=== PATIENT | male | born 1960 | race Caucasian/White ===

== ENCOUNTER 2018-08-14 01:54 | Outpatient (CLI) | payer BC, SELFPAY | END 2018-08-14 02:14 | PROVIDERS: PCP Family Medicine; Visit Provider Family Medicine | DX: E11.8 Type 2 diabetes mellitus with unspecified complications (principal) | CPT/HCPCS: 36415; 83036 ==

== ENCOUNTER 2018-11-12 08:18 | Outpatient (CLI) | payer BC, SELFPAY ==
[2018-11-12 11:17] LABS: Hemoglobin A1C 7.6 % (4.5-6.2)
== END 2018-11-12 08:38 ==
PROVIDERS: PCP Family Medicine; Visit Provider Family Medicine
DX: E11.65 Type 2 diabetes mellitus with hyperglycemia (principal)
CPT/HCPCS: 36415; 83036

== ENCOUNTER 2019-02-25 08:09 | Outpatient (CLI) | payer BC, SELFPAY ==
[2019-02-25 12:46] LABS: Hemoglobin A1C 7.1 % (4.5-6.2)
== END 2019-02-25 08:29 ==
PROVIDERS: PCP Family Medicine; Visit Provider Family Medicine
DX: E11.9 Type 2 diabetes mellitus without complications (principal)
CPT/HCPCS: 36415; 83036

== ENCOUNTER 2019-05-31 08:31 | Outpatient (CLI) | payer BC, SELFPAY ==
[2019-05-31 09:56] LABS: Hemoglobin A1C 7.5 % (4.5-6.2)
== END 2019-05-31 08:51 ==
PROVIDERS: PCP Family Medicine; Visit Provider Family Medicine
DX: E11.9 Type 2 diabetes mellitus without complications (principal)
CPT/HCPCS: 36415; 83036

== ENCOUNTER 2023-08-01 07:49 | Observation (INO) | payer BC, SELFPAY ==
[2023-08-01] VITALS (49 sets, daily range): BP systolic 100–145; BP diastolic 49–77; PULSE 64–96; RESP 12–35; TEMP 34.4–36.9; O2SAT 93–100
--- NOTE | 2023-08-01 07:45 | RT.EKG_ITS ---
APPROVED REPORT Exam: Resting ECG Reason for Exam: Dizzy Patient Location: E HR:78 bpm ECG Measurements Heart Rate 78 AXIS AK 103 P -88 QRSd 113 QRS -27 QT 420 T -2 QTc 481 Conclusion Sinus or ectopic atrial rhythm...P axis (-45,135) LAD borderline short AK interval. No previous for comparison. No STEMI
[2023-08-01] MEDS: Metoclopramide 10 MG/2 ML VIAL 5 MG IVP (08:23)
[2023-08-01] MEDS: diphenhydrAMINE 50 MG/ML VIAL 25 MG IVP (08:23)
[2023-08-01] MEDS: Lactated Ringers 1,000 ML 1000 ML IV ×2 (08:23→10:04)
[2023-08-01 08:25] LABS: Abs Immature Grans 0.04 10^3/uL (0.0-0.06); Absolute Basophil Count 0.07 10^3/uL (0.0-0.2); Absolute Eosinophil Count 0.17 10^3/uL (0.0-0.7); Absolute Monocyte Count 0.62 10^3/uL (0.1-0.8); Absolute Neutrophil Count 7.04 10^3/uL (1.2-6.7); Basophils % 0.7; Eosinophils % 1.6; Immature Grans % 0.4; Lymphocytes % 24.7; MCH 29.9 pg (27.0-33.0); MCHC 34.1 % (32.0-36.0); MCV 88 fL (80-95); MPV 10.2 fL (8.0-11.0); Monocytes % 5.9; Neutrophils % 66.7; Platelet Count 221 10^3/uL (130-400); RBC 5.02 10^6/uL (4.36-5.78); RDW 12.9 % (11.8-14.1); RDW-SD 41.3 fL; WBC 10.54 10^3/uL (4.4-10.8)
[2023-08-01 08:54] LABS: ALT 25 U/L (16-63); AST 16 U/L (15-37); Albumin 3.4 g/dL (3.4-5.0); Alkaline Phosphatase 96 U/L (46-116); Anion Gap 10.3 mmol/L (3-11); BUN 25 mg/dL (7-18); Bilirubin, Total 0.8 mg/dL (0.2-1.0); CO2 24.7 mmol/L (21.0-32.0); CREATININE 1.3 mg/dL (0.70-1.30); Chloride 100 mmol/L (98-107); Estimated GFR 61.73 (mL/min/1.73m2); Glucose 245 mg/dL (74-106); Magnesium 1.6 mg/dL (1.8-2.4); Sodium 135 mmol/L (136-145); Troponin I < 50 ng/L (<or=60)
[2023-08-01] MEDS: Meclizine 25 MG TAB PO ×2 (08:57→13:17)
--- NOTE | 2023-08-01 09:20 | W.ED.GENAD ---
Discharge Plan Disposition Patient Disposition: Admit to [facility] Condition: Good Discharge Details Admit Date/Time: 08/01/23 13:08 Admit Provider: Geraldo Ahuja Attending Provider: Geraldo Ahuja Primary Care Provider: Adrianna,Local ED Provider: Kerry Del Cid Discharge Data Discharge Date/Time-TO BE ENTERED AT DEPARTURE: 08/01/23 14:21 Medical Decision Making 63-year-old male presenting with dizziness followed by nausea and vomiting Mild right beating nystagmus, benign neurological exam, mild gait ataxia, labs do not show evidence of significant acute abnormality aside from mild hypomagnesemia, will supplement Initial troponin negative, EKG with mildly prolonged QTc, no significant evidence of acute ischemia, denies chest pain or shortness of GCS 15, cranial nerves II through XII intact, negative [id number], negative heel baer, negative pronator drift Able to follow basic commands, speaking in complete sentences, keeping eyes closed secondary to dizziness Received Benadryl, meclizine, 2 L of fluid, still remains dizzy, will order MRI to exclude posterior stroke Evidence of dehydration on labs, BUN of 25 Patient had MRI of the brain that does not show acute abnormality per radiology interpretation my review Patient has received numerous BPPV meds, meclizine, and Valium, fluids, developed nausea, vomiting, and having dizziness, unable to tolerate Rachel maneuver, will need admission to the hospital, with Dr. Ahuja, will admit to speak with you since recommends patientis time most likely is tendinitis discussed plan discussed along with HPI General Date/Time Provider Initiated Documentation: 08/01/23 08:09. HPI Narrative: 63-year-old male with history of SVT, diabetes, hypertension, hyperlipidemia presents with cute onset of dizziness this morning when he sat on the bed followed by nausea and vomiting. Denies any known sick contacts, history of tinnitus, denies any currently. States he feels the room is spinning around him. Denies strength or sensation or vision change. Denies any recent neck manipulations or injuries. Denies any chest pain or shortness of breath. He states he vomits vomited numerous times. Thinks his spinning is causing vomiting per patient. Related Data Home Medications Medication Instructions Recorded Confirmed pen needle, diabetic 31 gauge x ##360 06/18/18 08/13/1911/22 metformin 1,000 mg tablet 1,000 mg PO BID #180 tab-caps 08/02/19 08/01/23 simvastatin 40 mg tablet 40 mg PO HS #90 tabs 08/02/19 08/01/23 hydrochlorothiazide 25 mg tablet 25 mg PO DAILY hypertension #90 11/12/19 08/01/23 tabs losartan 100 mg tablet 100 mg PO DAILY #90 tabs 11/12/19 08/01/23 flash glucose scanning reader #1 ea 03/16/20 (FreeStyle Lisa 14 Day [place]) flash glucose sensor (FreeStyle #6 ea 03/25/20 Lisa 14 Day Sensor kit) gabapentin 100 mg capsule 100 mg PO BID 08/01/23 08/01/23 insulin glargine 100 unit/mL (3 26 unit subcut DAILY 08/01/23 08/01/23 mL) subcutaneous pen (Lantus Solostar U-100 Insulin) insulin lispro 100 unit/mL 8 unit subcut PRN PRN 08/01/23 08/01/23 subcutaneous pen meclizine 25 mg tablet 25 mg PO TID PRN dizziness #30 tabs 08/02/23 Previous Rx's Medication Instructions Recorded pen needle, diabetic 31 gauge x ##360 06/18/1811/22 metformin 1,000 mg tablet 1,000 mg PO BID #180 tab-caps 08/02/19 simvastatin 40 mg tablet 40 mg PO HS #90 tabs 08/02/19 hydrochlorothiazide 25 mg tablet 25 mg PO DAILY hypertension #90 11/12/19 tabs losartan 100 mg tablet 100 mg PO DAILY #90 tabs 11/12/19 flash glucose scanning reader #1 ea 03/16/20 (FreeStyle Lisa 14 Day [place]) flash glucose sensor (FreeStyle #6 ea 03/25/20 Lisa 14 Day Sensor kit) meclizine 25 mg tablet 25 mg PO TID PRN dizziness #30 tabs 08/02/23 Allergies Allergy/AdvReac Type Severity Reaction Status Date / Time No Known Allergies Allergy Unverified 08/01/23 07:59 General Stated Complaint: Nausea/Vomit/Diar ROSALINA: 3 [facility] Medical History (Updated 08/03/23 @ 00:13 by DAVI BUTLER) Conductive hearing loss, external ear (05/25/17) Wears hearing aids DM (diabetes mellitus) Essential hypertension (09/06/13) HTN (hypertension) Hyperlipidemia (10/19/04) 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) Smoker quit Smoker Supraventricular tachycardia 04/06/12 Supraventricular tachycardia (04/06/12) Syncope 02/18/13 Syncope (02/18/13) Tinnitus, bilateral (05/25/17) Tubular adenoma (05/11/18) tubulovillous Type II diabetes mellitus with complication, uncontrolled Surgical History (Updated 08/01/23 @ 16:54 by Anthony Henry MD) Arthroplasty of knee left Colonoscopy - MAC (05/11/18) H/O arthroscopy of left knee History of arthroscopy of knee Reconstruction reconstruction of left hand after near amputation S/P reconstruction procedure left hand after near amputation Status post reconstruction procedure Family History (Updated 08/13/19 @ 11:14 by John Chamorro) Mother No problems noted. Father , age 58 Diabetes Sister , age 49 Cancer Brother No problems noted. Brother No problems noted. Maternal Grandfather No problems noted. Paternal Grandfather Stroke Maternal Grandmother No problems noted. Paternal Grandmother No problems noted. Son No problems noted. Daughter No problems noted. Daughter No problems noted. Social History (Updated 08/13/19 @ 11:12 by John Chamorro) Smoking/Tobacco Use Status: Current-Occasional Tobacco: How many years used: 40 Quit status: considering quitting Second Hand Exposure: Yes Smoking risk assessment performed?: Yes Alcohol Intake: current Alcohol Intake frequency: 0-2 drinks per day Alcohol type: hard liquor Drug use: Never Substance use type: does not use Caregiver/Support person: No Household members: spouse Housing: house Communication Needs: None Pets and animals: No Sexually active: Yes Do you think of yourself as: straight/heterosexual Current gender identity: male What is your relationship status?: How often do you talk on the phone with friends or family?: once per week How often do you get together with friends or relatives?: once per week How often do you attend voodoo or lutheran services?: decline to answer Do you belong to any clubs or organized social groups?: no Panel score (0-1 are the most socially isolated patients): 1 What type of physical activity do you participate in: regular exercise Duration: > 90 minutes/day Frequency: daily Dayna/Protestant: Sabianism Special dayna needs: No Seatbelt use: always Helmet use: Yes Helmet use: always Drive intox or ride w/intox special needs bus driver: No Course Vital Signs Vital signs: Vital Signs Temperature 36.9 C 08/01/23 07:53 Pulse 96 H 08/01/23 07:53 Respiratory Rate 21 08/01/23 07:53 Blood Pressure 145/70 H 08/01/23 07:53 Pulse Oximetry 98 08/01/23 07:53 Temperature 36.9 C 08/01/23 07:53 Temperature Source Tympanic 08/01/23 07:53 Pulse 68 08/01/23 08:49 Pulse 72 08/01/23 08:49 Respiratory Rate 19 08/01/23 08:49 Respiratory Effort Normal 08/01/23 08:21 Blood Pressure 114/49 L 08/01/23 08:49 Blood Pressure Mean 72 08/01/23 08:49 Blood Pressure Position Sitting 08/01/23 07:53 Pulse Oximetry 97 08/01/23 08:40 Oxygen Delivery Method Room Air 08/01/23 07:53 Oxygen Flow Rate 0 08/01/23 07:53 Pain Level 2 08/01/23 07:53 Lab/Test Results Lab/Test Results: Laboratory Tests Range/Units 08/01/23 08/01/23 08/01/23 08:16 08:16 08:16 WBC (4.4-10.8) 10^3/uL 10.54 RBC (4.36-5.78) 10^6/uL 5.02 Hgb (13.5-17.5) g/dL 15.0 Hct (40.0-50.0) % 44.0 MCV (80-95) fL 88 MCH (27.0-33.0) pg 29.9 MCHC (32.0-36.0) % 34.1 RDW (11.8-14.1) % 12.9 Plt Count (130-400) 10^3/uL 221 MPV (8.0-11.0) fL 10.2 Immature Gran % 0.4 Neutrophils % 66.7 Lymphocytes % 24.7 Monocytes % 5.9 Eosinophils % 1.6 Basophils % 0.7 Nucleated RBC % (0.0-0.3) % 0.0 Absolute Neutrophils (1.2-6.7) 10^3/uL 7.04 H Absolute Lymphocytes (1.2-3.4) 10^3/uL 2.60 Absolute Monocytes (0.1-0.8) 10^3/uL 0.62 Absolute Eosinophils (0.0-0.7) 10^3/uL 0.17 Absolute Basophils (0.0-0.2) 10^3/uL 0.07 Sodium (136-145) mmol/L 135 L Potassium (3.5-5.1) mmol/L 4.0 Chloride (98-107) mmol/L 100 Carbon Dioxide (21.0-32.0) mmol/L 24.7 Anion Gap (3-11) mmol/L 10.3 BUN (7-18) mg/dL 25 H Creatinine (0.70-1.30) mg/dL 1.3 Est GFR (CKD-EPI 2020) (mL/min/1.73m2) 61.73 Glucose (74-106) mg/dL 245 H Calcium (8.5-10.1) mg/dL 9.0 Magnesium (1.8-2.4) mg/dL 1.6 L Total Bilirubin (0.2-1.0) mg/dL 0.8 AST (15-37) U/L 16 ALT (16-63) U/L 25 Alkaline Phosphatase (46-116) U/L 96 Troponin I (<or=60) ng/L < 50 Cancelled Total Protein (6.4-8.2) g/dL 7.0 Albumin (3.4-5.0) g/dL 3.4 PAWSS Have you Been Recently Intoxicated or Drunk Within the Last 30 days?: No Have you Ever Experienced Previous Episodes of Alcohol Withdrawal?: No Have you ever Experienced Withdrawal Seizures?: No Have you ever Experienced Delirium Tremens(DT)s?: No Have you ever undergone Alcohol Rehabilitation Treatment (i.e, inpt ot outpatient treatment programs)?: No Have you ever Experienced Blackouts?: No Have you ever Combined Alcohol with other Downers within the last 90 days?: No Have you ever Combined Alcohol with any other Substance of Abuse during the last 90 days?: No Result: 0
--- NOTE | 2023-08-01 09:45 | DI.MRI_ITS ---
Exam(s) MR BRAIN WO EXAM: MR BRAIN WO CLINICAL HISTORY: dizziness TECHNIQUE: Multiplanar multisequence MRI of the brain was performed. COMPARISON: No exams were available for comparison FINDINGS: VENTRICLES AND EXTRA AXIAL SPACES: Normal in size and morphology for the patient's age. MIDLINE SHIFT: None. CEREBRAL PARENCHYMA: No focus of restricted diffusion to suggest acute infarct. No space-occupying [place] identified. Mild atrophy consistent with the patient's age. Mild scattered foci of high signa l in the white matter consistent with sequela of chronic microvascular disease. HEMORRHAGE: None. BRAINSTEM/CEREBELLUM: Normal. VISUALIZED PARANASAL SINUSES/MASTOIDS:Large amount of mucous retention at the floors of the maxillary sinuses. Vasculature: Normal flow void. PITUITARY GLAND: Unremarkable. ORBITS: Unremarkable. IMPRESSION: Unremarkable MRI of the brain. Bilateral maxillary sinus mucous retention. DATA REPOSITORY:
[2023-08-01] MEDS: diazePAM 10 MG/2 ML SYR 2.5 MG IVP (09:59)
[2023-08-01] MEDS: LORazepam 2 MG/ML VIAL 1 MG IVP (11:25)
[2023-08-01 13:00] LABS: Troponin I < 50 ng/L (<or=60)
[2023-08-01] MEDS: Prochlorperazine 10 MG/2 ML VIAL 5 MG IVP (13:16)
[2023-08-01] MEDS: diazePAM 10 MG/2 ML SYR 5 MG IVP (14:05)
[2023-08-01] MEDS: Lactated Ringers 500 ML IV (14:25)
[2023-08-01] MEDS: MAGNESIUM SULFATE 4 GM/100 ML BAG IVPB (14:35)
[2023-08-01 16:29] LABS: Bilirubin Negative (Negative); Blood Negative (Negative); Clarity Clear (Clear); Glucose 500 mg/dL (Negative); Ketones 40 mg/dL (Negative); Leukocyte Esterase Negative (Negative); Nitrite Negative (Negative); Specific Gravity 1.025 (1.005-1.025); Urobilinogen 0.2 mg/dL (Up to 0.2); pH 5.5 (5-8)
--- NOTE | 2023-08-01 16:48 | HPE_ITS ---
Date of service: 08/01/23 Time of Service: 16:48 Assessment and Plan Assessment and plan (1) Vomiting: Status: Acute Assessment and plan: Recurrent vomiting probably related to the vertiginous feeling he has been having. This point it seems to be related to a labyrinthitis. MRI was reassuring. There are no other obvious signs. Urinalysis and UDS are pending. Supportive IV fluids antiemetics monitor his vitals overnight. (2) Dizziness: Status: Acute Assessment and plan: Dizziness thus far on the basis of presumed labyrinthitis. No evidence of a cerebellar infarct. (3) Tinnitus, bilateral: Status: Chronic Assessment and plan: Patient has had tinnitus for years. It actually has not been bothering him that much lately. Is not clear its related to his current issues at this time. (4) Type II diabetes mellitus with complication, uncontrolled: Status: Chronic Assessment and plan: Type II diabetic for over 20 years. His says his hemoglobin A1c has been in the 6 range. He has a Lisa device at home. His monitor shows that he does get a low blood sugar reading late afternoon prior to his evening meal on a regular basis. He may be under a little too tight control for his diabetes. We will check a hemoglobin A1c level. (5) Conductive hearing loss, external ear: Status: Chronic Assessment and plan: Chronic hearing loss. He wears hearing aids. There does not appear to be anything in the external auditory canal per Kerry Vergara exam. He does not have his hearing aids in at this time. (6) Essential hypertension: Status: Chronic Assessment and plan: Continue on current meds. Blood pressure well controlled. (7) Hypoglycemia: Status: Acute Assessment and plan: Low blood sugars on a daily basis. He may warrant liberalizing his blood sugar control to some degree. We will continue on his Lantus with sliding scale coverage. Hold on his oral medications for now. (8) Hypomagnesemia: Status: Acute Assessment and plan: Magnesium 1.6 on admission. He received a magnesium bolus. We will check his level again in the a.m. History of Present Illness History of Present Illness Chief Complaint: Intractable nausea vomiting dizziness Narrative: 63-year-old male woke this morning with severe nausea and dizziness. states he closed his eyes and almost fell because of poor balance. He was well yesterday with no issues. He cannot recall any provoking event. He did not drink alcohol yesterday at all. No new drugs. He does not use marijuana. He does not smoke. He had a shingles outbreak in his right chest a few months ago that has resolved. His notes there has been some increased stress recently. In the emergency room he continued to have vomiting episodes including after the Hallpike maneuver. An MRI did not show any active lesions. He received IV fluids and antiemetics and is admitted to observation status. Review of Systems Narrative: He is extremely sedated and does not voluntary any active complaints. He has not been troubled by any URI symptoms, no fevers. He states he has been feeling cold. No chest pain no shortness of breath. The vomiting came on this morning its not a chronic problem for him. No other problems with his bowels. His balance is off because of the dizziness. 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) Smoker quit Smoker Supraventricular tachycardia 04/06/12 Supraventricular tachycardia (04/06/12) Syncope 02/18/13 Syncope (02/18/13) Tubular adenoma (05/11/18) tubulovillous Surgical History (Updated 08/01/23 @ 16:54 by Anthony Henry MD) Arthroplasty of knee left Colonoscopy - MAC (05/11/18) H/O arthroscopy of left knee History of arthroscopy of knee Reconstruction reconstruction of left hand after near amputation S/P reconstruction procedure left hand after near amputation Status post reconstruction procedure Family History (Updated 08/13/19 @ 11:14 by John Chamorro) Mother No problems noted. Father , age 58 Diabetes Sister , age 49 Cancer Brother No problems noted. Brother No problems noted. Maternal Grandfather No problems noted. Paternal Grandfather Stroke Maternal Grandmother No problems noted. Paternal Grandmother No problems noted. Son No problems noted. Daughter No problems noted. Daughter No problems noted. Social History (Updated 08/13/19 @ 11:12 by John Chamorro) Smoking/Tobacco Use Status: Current-Occasional Tobacco: How many years used: 40 Quit status: considering quitting Second Hand Exposure: Yes Smoking risk assessment performed?: Yes Alcohol Intake: current Alcohol Intake frequency: 0-2 drinks per day Alcohol type: hard liquor Drug use: Never Substance use type: does not use Caregiver/Support person: No Household members: spouse Housing: house Communication Needs: None Pets and animals: No Sexually active: Yes Do you think of yourself as: straight/heterosexual Current gender identity: male What is your relationship status?: How often do you talk on the phone with friends or family?: once per week How often do you get together with friends or relatives?: once per week How often do you attend lutheran or jainism services?: decline to answer Do you belong to any clubs or organized social groups?: no Panel score (0-1 are the most socially isolated patients): 1 What type of physical activity do you participate in: regular exercise Duration: > 90 minutes/day Frequency: daily Dayna/Rastafarian: Congregation Special dayna needs: No Seatbelt use: always Helmet use: Yes Helmet use: always Drive intox or ride w/intox warehouse driver: No Meds Allergies and Home Medications Allergies Allergy/AdvReac Type Severity Reaction Status Date / Time No Known Allergies Allergy Unverified 08/01/23 07:59 Home Medications Medication Instructions Recorded Confirmed Type Flash Glucose Sensor [Freestyle ##12 06/18/18 06/03/19 Clinic Lisa Sensor] Glucometer 1 unit SQ AC & HS #1 units 06/18/18 06/03/19 Clinic pen needle, diabetic 31 gauge x ##360 06/18/18 08/13/19 Rx 1/3 metformin 1,000 mg tablet 1,000 mg PO BID #180 tab-caps 08/02/19 08/01/23 Rx simvastatin 40 mg tablet 40 mg PO HS #90 tabs 08/02/19 08/01/23 Rx hydrochlorothiazide 25 mg tablet 25 mg PO DAILY hypertension #90 11/12/19 08/01/23 Rx tabs losartan 100 mg tablet 100 mg PO DAILY #90 tabs 11/12/19 08/01/23 Rx flash glucose scanning reader #1 ea 03/16/20 Rx (FreeStyle Lisa 14 Day [place]) flash glucose sensor (FreeStyle #6 ea 03/25/20 Rx Lisa 14 Day Sensor kit) gabapentin 100 mg capsule 100 mg PO BID 08/01/23 08/01/23 History insulin glargine 100 unit/mL (3 26 unit subcut DAILY 08/01/23 08/01/23 History mL) subcutaneous pen (Lantus Solostar U-100 Insulin) insulin lispro 100 unit/mL 8 unit subcut PRN PRN 08/01/23 08/01/23 History subcutaneous pen Exam Narrative Exam Narrative: On exam he is groggy and sedated but is able to arouse and will answer with short sentences. He is understanding and cooperative. He is neck is supple and there is no palpable adenopathy. His lungs are completely clear to auscultation bilaterally. His heart sounds are regular and there is no significant murmur. His abdomen is moderately obese and nontender. The area he points out as having previous shingles showed no outward sign of deformity or scarring. There is no active shingles present. The lower extremities are well muscled and show no evidence of edema and appear well perfused. Neurologically he is fully cooperative with exam can move all extremities he can maneuver from lying to sitting without any apparent difficulty I did not test ambulation. He did not c omplain of severe dizziness or nausea with this mobilization. Results Imaging Imaging Studies: MRI of the head did not show any abnormality of the brain. There was mucus retention in the maxillary sinuses. Labs 08/01/23 08:16 08/01/23 08:16 Labs: Laboratory Results - last 24 hr 08/01/23 08/01/23 08/01/23 08:16 08:16 08:16 WBC 10.54 RBC 5.02 Hgb 15.0 Hct 44.0 MCV 88 MCH 29.9 MCHC 34.1 RDW 12.9 Plt Count 221 MPV 10.2 Immature Gran % 0.4 Neutrophils % 66.7 Lymphocytes % 24.7 Monocytes % 5.9 Eosinophils % 1.6 Basophils % 0.7 Nucleated RBC % 0.0 Absolute Neutrophils 7.04 H Absolute Lymphocytes 2.60 Absolute Monocytes 0.62 Absolute Eosinophils 0.17 Absolute Basophils 0.07 Sodium 135 L Potassium 4.0 Chloride 100 Carbon Dioxide 24.7 Anion Gap 10.3 BUN 25 H Creatinine 1.3 Est GFR (CKD-EPI 2020) 61.73 Glucose 245 H Calcium 9.0 Magnesium 1.6 L Total Bilirubin 0.8 AST 16 ALT 25 Alkaline Phosphatase 96 Troponin I < 50 Cancelled Total Protein 7.0 Albumin 3.4 Urine Color Urine Clarity Urine pH Ur Specific [place] Urine Protein Urine Ketones Urine Blood Urine Nitrite Urine Bilirubin Urine Urobilinogen Ur Leukocyte Esterase Urine Glucose 08/01/23 08/01/23 12:20 16:10 WBC RBC Hgb Hct MCV MCH MCHC RDW Plt Count MPV Immature Gran % Neutrophils % Lymphocytes % Monocytes % Eosinophils % Basophils % Nucleated RBC % Absolute Neutrophils Absolute Lymphocytes Absolute Monocytes Absolute Eosinophils Absolute Basophils Sodium Potassium Chloride Carbon Dioxide Anion Gap BUN Creatinine Est GFR (CKD-EPI 2020) Glucose Calcium Magnesium Total Bilirubin AST ALT Alkaline Phosphatase Troponin I < 50 Total Protein Albumin Urine Color Yellow Urine Clarity Clear Urine pH 5.5 Ur Specific [place] 1.025 Urine Protein Negative Urine Ketones 40 H Urine Blood Negative Urine Nitrite Negative Urine Bilirubin Negative Urine Urobilinogen 0.2 Ur Leukocyte Esterase Negative Urine Glucose 500 H Last Vital Signs Temp 34.4 C L 08/01/23 16:17 Pulse 67 08/01/23 16:17 Resp 18 08/01/23 16:17 BP 125/76 08/01/23 16:17 Pulse Ox 96 08/01/23 16:17 PAWSS Have you Been Recently Intoxicated or Drunk Within the Last 30 days?: No Have you Ever Experienced Previous Episodes of Alcohol Withdrawal?: No Have you ever Experienced Withdrawal Seizures?: No Have you ever Experienced Delirium Tremens(DT)s?: No Have you ever undergone Alcohol Rehabilitation Treatment (i.e, inpt ot outpatient treatment programs)?: No Have you ever Experienced Blackouts?: No Have you ever Combined Alcohol with other Downers within the last 90 days?: No Have you ever Combined Alcohol with any other Substance of Abuse during the last 90 days?: No Result: 0 Time Spent Time spent with Patient: 40-54 minutes Time was spent: preparing to see the patient(eg.review tests), obtaining and/or reviewing separately otained hiistory, ordering medications,tests, procedures, referring, communicating with other health career development director, indepentently interpreting results and counseling the patient
[2023-08-01] MEDS: Insulin Aspart 300 UNITS/3 ML PEN SC (17:05)
--- NOTE | 2023-08-01 17:15 | PT.INNT ---
PT Notes Visit Reasons: Vertigo Patient sleeping and is unable to stay awake. Per Nurse Kristen, patient has had Valium. Will attempt to see patient tomorrow morning for assessmnet of vertigo.
[2023-08-01] MEDS: Gabapentin 100 MG CAP PO (20:23)
[2023-08-02 02:34] LABS: *AMPHETAMINES SCREEN URINE Negative (Negative); *BARBITURATES SCREEN URINE Negative (Negative); *BENZODIAZEPINES SCREEN URINE Positive (Negative); Cannabinoids THC Positive (Negative); Cocaine Screen,Urine Negative (Negative); METHADONE URINE SCREEN Negative (Negative); OPIATES URINE SCREEN Negative (Negative)
[2023-08-02 02:35] LABS: Tricyclic Antidepressants Negative (Negative)
[2023-08-02 03:21] VITALS: BP 101/53; PULSE 70; RESP 18; TEMP 35.6; O2SAT 97
[2023-08-02] MEDS: Lactated Ringers 1,000 ML 80 ML IV (06:16)
[2023-08-02 06:47] LABS: Abs Immature Grans 0.06 10^3/uL (0.0-0.06); Absolute Basophil Count 0.08 10^3/uL (0.0-0.2); Absolute Lymphocyte Count 2.91 10^3/uL (1.2-3.4); Absolute Monocyte Count 1.15 10^3/uL (0.1-0.8); Basophils % 0.6; Eosinophils % 1.2; HCT 40.2 % (40.0-50.0); HGB 13.5 g/dL (13.5-17.5); Immature Grans % 0.5; Lymphocytes % 22.4; MCH 30.2 pg (27.0-33.0); MCHC 33.6 % (32.0-36.0); MCV 90 fL (80-95); MPV 10.3 fL (8.0-11.0); Monocytes % 8.9; Neutrophils % 66.4; Platelet Count 206 10^3/uL (130-400); RBC 4.47 10^6/uL (4.36-5.78); RDW 13.1 % (11.8-14.1); RDW-SD 42.9 fL; WBC 12.97 10^3/uL (4.4-10.8)
[2023-08-02 06:56] LABS: Absolute Eosinophil Count 0.16 10^3/uL (0.0-0.7); Absolute Neutrophil Count 8.61 10^3/uL (1.2-6.7)
[2023-08-02 07:02] LABS: Hemoglobin A1C 8.7 % (<5.7)
[2023-08-02 07:07] LABS: Anion Gap 5.4 mmol/L (3-11); BUN 24 mg/dL (7-18); CO2 29.6 mmol/L (21.0-32.0); CREATININE 1.3 mg/dL (0.70-1.30); Calcium 8.5 mg/dL (8.5-10.1); Chloride 102 mmol/L (98-107); Estimated GFR 61.73 (mL/min/1.73m2); Glucose 210 mg/dL (74-106); Magnesium 2.1 mg/dL (1.8-2.4); Potassium 4.3 mmol/L (3.5-5.1); Sodium 137 mmol/L (136-145)
[2023-08-02 07:23] VITALS: BP 126/78; PULSE 80; RESP 18; TEMP 36.4; O2SAT 96
[2023-08-02] MEDS: Insulin Glargine 300 UNITS/3 ML PEN 26 UNITS SC (07:57)
[2023-08-02] MEDS: Insulin Aspart 300 UNITS/3 ML PEN SC (07:57)
[2023-08-02] MEDS: Losartan 50 MG TAB 100 MG PO (07:59)
[2023-08-02] MEDS: hydroCHLOROthiazide 25 MG TAB PO (07:59)
[2023-08-02] MEDS: Gabapentin 100 MG CAP PO (07:59)
--- NOTE | 2023-08-02 10:20 | INITIAL_ITS ---
Date of service: 08/02/23 Time of Service: 10:21 Care Management Initial Assmt Initial Assessment REASON FOR HOSPITALIZATION:: Vertigo PREVIOUS FUNCTIONAL STATUS/SOCIAL/FAMILY SUPPORTS:: Mario lives in [place] with his , Sandee. They are [place] residents, who spend some time in the summer in [place]. He is independent at baseline. CURRENT FUNCTIONAL STATUS:: Mario was sitting up on the edge of his bed visiting with his when CM met with him. Mario stated that he feels great, he is not symptomatic, and he would like to be discharged. He stated that he has a PCP in [place], and has an appointment scheduled in about 4 weeks. CM informed the provider that he is hoping to be discharged soon. CM will continue to follow. ADVANCE DIRECTIVES:: [facility] form on file; Sandee () listed as [facility]. Has patient been provided with info about the portal/API?: Yes Did the patient sign up for the portal?: No CODE STATUS:: Full Code INSURANCE COVERAGE / FINANCIAL ISSUES:: B/C out of state ([facility]) CURRENT HOME/COMMUNITY SERVICES/EQUIPMENT:: none PRIMARY CARE PHYSICIAN:: not local; [place] POTENTIAL DISCHARGE NEEDS:: evaluations for further needs, follow up appointments PATIENT/FAMILY EDUCATION NEEDS:: Review discharge instructions and limitations, discussion of self care needs including ask me three. ANTICIPATED BARRIERS TO DISCHARGE:: None identified. TRANSPORTATION:: Via private vehicle by family. PLAN:: Anticipate Mario will return home once medically cleared. His will drive him home via private vehicle. He will follow up with his PCP and discharge plan of care. CM will continue to follow. 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) Smoker quit Smoker Supraventricular tachycardia 04/06/12 Supraventricular tachycardia (04/06/12) Syncope 02/18/13 Syncope (02/18/13) Tubular adenoma (05/11/18) tubulovillous Surgical History (Updated 08/01/23 @ 16:54 by Anthony Henry MD) Arthroplasty of knee left Colonoscopy - MAC (05/11/18) H/O arthroscopy of left knee History of arthroscopy of knee Reconstruction reconstruction of left hand after near amputation S/P reconstruction procedure left hand after near amputation Status post reconstruction procedure Family History (Updated 08/13/19 @ 11:14 by John Chamorro) Mother No problems noted. Father , age 58 Diabetes Sister , age 49 Cancer Brother No problems noted. Brother No problems noted. Maternal Grandfather No problems noted. Paternal Grandfather Stroke Maternal Grandmother No problems noted. Paternal Grandmother No problems noted. Son No problems noted. Daughter No problems noted. Daughter No problems noted. Social History (Updated 08/13/19 @ 11:12 by John Chamorro) Smoking/Tobacco Use Status: Current-Occasional Tobacco: How many years used: 40 Quit status: considering quitting Second Hand Exposure: Yes Smoking risk assessment performed?: Yes Alcohol Intake: current Alcohol Intake frequency: 0-2 drinks per day Alcohol type: hard liquor Drug use: Never Substance use type: does not use Caregiver/Support person: No Household members: spouse Housing: house Communication Needs: None Pets and animals: No Sexually active: Yes Do you think of yourself as: straight/heterosexual Current gender identity: male What is your relationship status?: How often do you talk on the phone with friends or family?: once per week How often do you get together with friends or relatives?: once per week How often do you attend synagogue or scientology services?: decline to answer Do you belong to any clubs or organized social groups?: no Panel score (0-1 are the most socially isolated patients): 1 What type of physical activity do you participate in: regular exercise Duration: > 90 minutes/day Frequency: daily Dayna/Lutheran: Taoism Special dayna needs: No Seatbelt use: always Helmet use: Yes Helmet use: always Drive intox or ride w/intox dedicated local truck driver: No
--- NOTE | 2023-08-02 11:47 | DSE_ITS ---
Date of service: 08/02/23 Time of Service: 11:48 DS: Diagnosis Discharge Diagnosis (1) Vomiting: Status: Resolved (2) Dizziness: Status: Resolved (3) Tinnitus, bilateral: (4) Type II diabetes mellitus with complication, uncontrolled: (5) Conductive hearing loss, external ear: (6) Essential hypertension: (7) Hypoglycemia: Status: Resolved (8) Hypomagnesemia: Status: Resolved Discharge Plan Disposition Patient Disposition: Home Condition: Improving Discharge Details Reason For Visit: Vertigo Admit Date/Time: 08/01/23 13:08 Admit Provider: Geraldo Ahuja Attending Provider: Geraldo Ahuja [facility] This is a 63-year-old male patient with past medical history of who presented to the [facility] ED 08/01 for evaluation of severe nausea and dizziness.? (RN) stated patient closed his eyes and almost fell because of poor balance.? He denied recent illness. There was no provoking event.? He did not drink alcohol. No new medications.? He does not use marijuana.? He does not smoke.? He had a shingles outbreak in his right chest a few months ago that has resolved.? His noted there has been some increased stress recently. In the ED he continued to have vomiting episodes including after the Hallpike maneuver.? An MRI did not show any active lesions.? He received IV fluids and antiemetics and was admitted to observation status. Overnight he did well, he slept and reported no remaining symptoms this morning. He was discharged to home with prescription of Meclizine and asked to follow up with PCP. He was advised if symptoms return and are not relieved by Meclizine he should return to the ED. Home Meds and New Rx's Prescriptions: New meclizine 25 mg tablet 25 mg PO TID PRN (Reason: dizziness) Qty: 30 2RF Continued (DME) pen needle, diabetic 1 EACH needle 1 ea Miscellaneous AC & HS Qty: 360 12RF Rx Instructions: B/D Insulin Pen Needle 31Gx 3/16DX; E11.8 (DME) Flash Glucose Sensor [Freestyle Lisa Sensor] 1 EACH kit Miscellaneous Q10 Days Qty: 12 12RF Rx Instructions: E10.65; insulin use. Dispense 90 day supply. 1 year glucometer 1 unit SQ AC & HS Qty: 1 0RF Rx Instructions: Free style lisa glucometer and all supplies. E11.65 metformin 1,000 mg tablet 1,000 mg PO BID Qty: 180 12RF simvastatin 40 mg tablet 40 mg PO HS Qty: 90 12RF losartan 100 mg tablet 100 mg PO DAILY Qty: 90 5RF hydrochlorothiazide 25 mg tablet 25 mg PO DAILY Qty: 90 4RF (DME) FreeStyle Lisa 14 Day [place] Misc See Dose Instructions .ROUTE .MEDSUPPLY Qty: 1 5RF Dose Instruction: As directed Rx Instructions: Test 2-12 times daily (DME) FreeStyle Lisa 14 Day Sensor Kit See Dose Instructions .ROUTE .MEDSUPPLY Qty: 6 8RF Dose Instruction: As directed Rx Instructions: E11.9 frequent testing needed insulin lispro 100 unit/mL insulin pen 8 unit SC PRN PRN Rx Instructions: E11.65 gabapentin 100 mg capsule 100 mg PO BID Patient Comments: TAKE 1 CAPSULE BY MOUTH IN THE MORNING AND AT BEDTIME insulin glargine [Lantus Solostar U-100 Insulin] 100 unit/mL (3 mL) insulin pen 26 unit SUBCUT DAILY Patient Comments: 26 units subq daily in the morning per the pt Discharge Instructions Instructions: Meclizine (By mouth), Benign Paroxysmal Positional Vertigo (DC) Additional Instructions: Follow up with PCP. Take Meclizine as needed for dizziness up to four times a day for vertigo. Do not drink alcohol or drive when starting this medication. INTRODUCTIONDizziness is a feeling that may be hard to describe, but often involves feeling like you are spinning, swaying, or tilting, or like you are about to fall or pass out. Dizziness can also cause you to feel lightheaded or giddy, or to have difficulty walking straight. Vertigo is one common type of dizziness. If you have vertigo, you may feel like you are moving or like the room is moving around you, even when you are still. Vertigo can be caused by a number of different problems involving the inner ear or brain. This article is primarily about vertigo, including causes and available treatments. SYMPTOMSIf you have vertigo, you may feel like you are: ?Spinning (or the room is spinning around you) ?Tilting or swaying ?Off balance These feelings can come and go, and may last for seconds, minutes, hours, or days. You may feel worse when you move your head, change position (eg, stand up or turn over in bed), cough, or sneeze. Depending on what is causing your vertigo, you might also have other symptoms, such as: ?Nausea or vomiting ?A headache or sensitivity to light and noise ?Double vision, trouble speaking or swallowing, or weakness ?Shortness of breath, sweating, or a racing heartbeat If you think you may have vertigo, see your health care provider (see?'When to seek help' https://www.[employer]/contents/stdghev-dkanco-dcl-basics?search=enedelia%20maneu tyson&source=search_result&selectedTitle=3~6&usage_type=default&display_rank=3#H4 ?below). It will help if you can describe how long your symptoms last, what triggers the symptoms, and any other problems you are having. These clues can help point to the cause of your vertigo. COMMON CAUSES OF VERTIGOVertigo typically happens when there is a problem in the vestibular system. The vestibular system, which controls balance, includes parts of the inner ear and nervous system (figure 1 https://www.[employer]/contents/image?imageKey=PI%[id number]&topicKey=PI%2F721&se arch=enedelia+maneuver&rank=3%7E6&source=see_link ). Different conditions can affect the vestibular system. Some are not serious, while others can be life threatening. Benign paroxysmal positional vertigo???Benign paroxysmal positional vertigo (BPPV), sometimes called benign positional vertigo or simply vertigo, is the term used to describe vertigo that develops due to misplaced collections of calcium in the inner ear. Episodes of vertigo are typically brief in people with BPPV, lasting a few seconds to less than a minute. They can be triggered by moving the head in certain ways. BPPV often resolves on its own, but also can be treated effectively with a procedure called canalith repositioning (the collections of calcium in the inner ear are called canaliths). This is done by a doctor, nurse, or therapist in the office by moving your head into certain positions. It is sometimes called the Enedelia maneuver. The movements encourage the calcium collection to move into a part of the inner ear where it will be reabsorbed. You may begin to feel better immediately after this treatment or within a day or two. If the treatment is successful, you may be given instructions on how to perform similar movements at home, if your symptoms return. Meniere disease???Meniere disease is a chronic condition that is thought to be related to a buildup of fluid in the inner ear. It causes repeated episodes of vertigo as well as hearing loss, ringing in the ear, and a feeling of fullness in the ear. These symptoms often affect one ear. Episodes can be severe and last several minutes or hours; vertigo is often accompanied by nausea and vomiting. A feeling of being off balance can last for several days after an episode. While Meniere disease is a lifelong condition, nonsurgical treatments are effective in managing symptoms in approximately 90 percent of people. Vestibular neuritis???Vestibular neuritis, also known as labyrinthitis, is thought to be related to a virus that causes swelling around the nerve involved in maintaining balance. People with vestibular neuritis develop sudden, severe vertigo; nausea; vomiting; and difficulty walking or standing up. Some people also develop hearing loss in one ear. Typically, these problems last several days and then gradually resolve, although some people have residual dizziness or problems with balance that can last for several months. Hearing loss can be permanent. Vestibular migraine???Migraine can be a cause of episodes of vertigo. Most, but not all, people with vestibular migraine also have typical migraine headaches and other migraine symptoms (such as visual aura or light sensitivity) that can either accompany the spells of vertigo or occur separately. The duration of vertigo is variable, but most episodes last several minutes to a few hours. Preventive treatments for migraine headache can also be helpful for vestibular migraine. (See?Patient education: Migraines in adults (Beyond the Basics) https://www.[employer]/contents/ooxkpnhre-wm-jbyzxj-hcioew-sql-zrjutu?search=e pley+maneuver&ywaimWcb=498&source=see_link .) Other causes of vertigo???Many other conditions can cause vertigo. They include: ?Head injury ? Head injuries can affect the vestibular system in a variety of ways and lead to vertigo. ?Medications ? Some medications can affect the function of the inner ear or brain and lead to vertigo. Rarely, some medications can actually damage the inner ear. ?Problems affecting the brain ? Stroke or transient ischemic attack (TIA), bleeding in the brain, or multiple sclerosis can also cause vertigo. There are usually other symptoms besides vertigo that occur with these brain problems. WHEN TO SEEK HELPYou should seek help immediately if you have dizziness or vertigo along with any of the following: ?New or severe headache ?Fever higher than 100.4?F (38?C) ?Seeing double or having trouble seeing clearly ?Trouble speaking or hearing ?Weakness in your arm or leg ?An inability to walk without assistance ?Passing out ?Numbness or tingling ?Chest pain ?Vomiting that will not stop In addition, you should seek help immediately if you have vertigo that lasts for several minutes or more if you: ?Are an older adult (60 years or older) ?Have had a stroke in the past ?Have risk factors for stroke (eg, high blood pressure, diabetes, or smoking) If you have dizziness or vertigo that comes and goes but you do not have any of the above problems, make an appointment with your health care provider. They will perform a physical exam and ask about your symptoms and medical history. They will probably check: ?Your eyes ? You might be asked to follow an object with your eyes, or focus on something while moving your head from side to side. ?Your balance and gait ? This involves watching you walk, to see if you lean or tilt to one side, as well as checking your balance while you stand still. ?Your hearing ? Your doctor or nurse will check your hearing in both ears. Depending on what they find during your examination, your doctor might do additional tests. They might include an imaging test, such as magnetic resonance imaging (MRI), to look at the structure of your brain. VERTIGO TREATMENTIn most people, vertigo is bothersome, but it is not caused by a serious problem. Treatment for vertigo aims to treat the underlying cause (if the cause is known), relieve symptoms, and help with recovery. Disease-specific treatment???If your doctor is able to identify the cause of your vertigo, they can recommend treatments such as medications, procedures, or lifestyle changes. Sometimes, treating the underlying condition relieves or resolves the vertigo; other times, treatment is aimed at slowing disease progression and improving your overall prognosis. Some of the more common disease-specific treatments are described above. (See?'Common causes of vertigo' https://www.[employer]/contents/dbmupwb-zuqlss-gqe-basics?search=Skoodat%20maneu tyson&source=search_result&selectedTitle=3~6&usage_type=default&display_rank=3#H3 ?above.) Relieving vertigo and related symptoms???If you have episodes of vertigo that are severe or last for hours or days (regardless of the cause), your doctor may recommend a medication to relieve severe vertigo and associated symptoms, like vomiting. Treatment with medication is not usually recommended if your vertigo lasts only seconds or minutes. Medications may include: ?An antihistamine, such as the prescription medicine?meclizine https://www.[employer]als/[employer]/gbhmqiobc-xpkmbnr-zbjq-information?search=eple y+maneuver&jhntsCty=014&source=see_link ?(sample brand name: Antivert), or nonprescription medicines like?dimenhydrinate https://www.[employer]/dssfbkgqkprhps-akjdxeh-mdpu-information?search =enedelia+maneuver&dbithAxc=954&source=see_link ?(sample brand name: Dramamine) or? diphenhydramine https://www.[employer]/nxotvqliccekthz-lfiaoyz-epmd-information?searc h=enedelia+maneuver&klpgdQrt=549&source=see_link ?(sample brand name: Benadryl). These medicines are also commonly used to treat or prevent motion sickness. ?Prescription antinausea medicines, such as?ondansetron https://www.[employer]/zndbvchxrxn-vcjlusi-edxg-information?search=ep khoi+maneuver&nqigkFnf=832&source=see_link ?(sample brand name: Zofran),? promethazine https://www.[employer]/sskxywyqreji-lxdzdli-oyew-information?search=e pley+maneuver&mnbenHnu=774&source=see_link ?(sample brand name: Phenergan), or? metoclopramide https://www.[employer]/contents/rqksjteglitwrt-uehsqtf-omam-information?search =enedelia+maneuver&flyxuMei=764&source=see_link ?(sample brand name: Reglan). ?Prescription sedative medicines, such as?diazepam https://www.[employer]/awanijtj-ghnatdr-qnso-information?search=enedelia +maneuver&druokJfc=611&source=see_link ?(sample brand name: Valium),?lorazepam https://www.[employer]/arzmzcmny-uxswblh-cizs-information?search=eple y+maneuver&oogrbCgm=169&source=see_link ?(sample brand name: Ativan), or? clonazepam https://www.[employer]/citwmzomzr-byptafq-uamo-information?search=epl ey+maneuver&kcgmjDbr=349&source=see_link ?(sample brand name: Klonopin). These medicines are commonly used to treat anxiety, but can also help relieve vertigo. Most of these medicines make you sleepy, and you should not take them before you work or drive. You should only take prescription medicines to treat severe vertigo symptoms, and you should stop the medicine when your symptoms improve (usually within a day or two). Continuing to take these medications can interfere with long-term recovery. Vestibular rehabilitation???Most people with vertigo feel better if they keep their head still. However, lying still and not moving your head can actually delay recovery in the rodent exterminator. Vestibular rehabilitation can help people recover from vertigo that is caused by a problem within the vestibular system. Vestibular rehabilitation works by helping your brain adjust its responses to changes in the vestibular system. It can also help train your eyes and other senses to learn how to adapt. This therapy is most helpful when it is started as soon as possible after you develop vertigo. During rehabilitation, you will work with a physical therapist who will teach you exercises you can do at home. For example, you might start by focusing on an object with a blank background and move your head slowly to the right and left and up and down. You would perform this exercise for several minutes two to three times per day. If you have trouble standing or walking because of vertigo, this increases your risk of falling. This is particularly a concern for older adults, as falls can lead to serious complications, such as a broken hip. Talk to your doctor, nurse, or therapist if you are worried about falling. To reduce the risk of falls, remove hazards in your home, such as loose electrical cords, slippery rugs, and clutter; wear sturdy shoes; and avoid walking in unfamiliar areas that are not lighted. Stand Alone Forms: Nursing Discharge Form Activity:: Activity as Tolerated Equipment/Supplies:: No Equipment Needed Diet:: As Tolerated Discharge Orders Discharge Orders: Discharge Order (Routine); Ordered 08/02/23 Ordered By: Dari Winter Discharge Data Discharge Date/Time-TO BE ENTERED AT DEPARTURE: 08/02/23 12:29 DS: Summary Time Spent with Patient providing and/or coordinating discharge services: Greater than 30 minutes Status at Discharge Functional status at discharge: independent ambulation Overall status at discharge: patient is back to baseline Mental Status: mental status grossly normal Speech and Movement: speech and movement normal Mood: congruent mood Affect: normal affect Exam Narrative Exam Narrative: Constitutional: Alert and oriented x3. Appears stated age. Normal body habitus. Head: Normocephalic, no trauma. Eyes: Pupils PERRL, EOM's intact. Eyelids symmetrical without lesions, discharge, or swelling. Chest: RRR, Normal S1, S2, distal pulses intact. Resp: Lungs clear to auscultation bilaterally, no wheezes, rales, or rhonchi. Abdomen: Soft, non-distended, negative Savage sign, right CVA tenderness with palpation. Musculoskeletal: Normal gait, 5/5 strength to all four extremities. Skin: No suspicious rashes or lesions. Capillary refill less than 2 sec. Neurologic: Cranial nerves II-XII intact. Alert and oriented x 3. Motor: No deficits noted. Sensory: Intact bilaterally all 4 extremities. Hematologic/Lymphatic: No ecchymosis, no lymphadenopathy. Psych Mental Status: mental status grossly normal Speech and Movement: speech and movement normal Mood: congruent mood Affect: normal affect DS: Data Vitals/I&O Vitals and I&O: Vital Signs Temperature 36.4 C L 08/02/23 07:23 Temperature Source Tympanic 08/02/23 07:23 Pulse 80 08/02/23 07:23 Pulse Rhythm Regular 08/02/23 08:05 Pulse 69 08/01/23 11:20 Respiratory Rate 18 08/02/23 07:23 Respiratory Effort Normal, Non-Labored 08/02/23 08:05 Respiratory Depth Normal 08/02/23 08:05 Respiratory Pattern Normal 08/02/23 08:05 Blood Pressure 126/78 08/02/23 07:23 Blood Pressure Mean 88 08/01/23 14:16 Blood Pressure Position Sitting 08/01/23 07:53 Pulse Oximetry 96 08/02/23 07:23 Oxygen Delivery Method Room Air 08/02/23 07:23 Oxygen Flow Rate 0 08/02/23 07:23 Pain Level 0 08/02/23 03:21 Intake & Output 08/01/23 08/01/23 08/02/23 11:59 23:59 11:59 Intake Total 2009 2970 960 / 2970 700 / 700 Output Total 450 / 450 Balance 2009 2520 510 / 2520 700 / 700 Weight 90.718 kg Intake: IV 2009 2610 600 / 2610 Oral 360 / 360 700 / 700 Output: Urine 450 / 450 Other: Urine Color Yellow Urine Appearance Clear Clear Urine Odor None Comment pT voids independently. Stool Characteristics Soft Emesis Description Bile Voiding Methods Toilet Data Completed and Pending Labs on day of discharge: Labs from last 24 hours 08/02/23 08/02/23 08/02/23 06:10 06:10 06:10 WBC 12.97 H RBC 4.47 Hgb 13.5 Hct 40.2 MCV 90 MCH 30.2 MCHC 33.6 RDW 13.1 Plt Count 206 MPV 10.3 Immature Gran % 0.5 Neutrophils % 66.4 Lymphocytes % 22.4 Monocytes % 8.9 Eosinophils % 1.2 Basophils % 0.6 Nucleated RBC % 0.0 Absolute Neutrophils 8.61 H Absolute Lymphocytes 2.91 Absolute Monocytes 1.15 H Absolute Eosinophils 0.16 Absolute Basophils 0.08 Sodium 137 Potassium 4.3 Chloride 102 Carbon Dioxide 29.6 Anion Gap 5.4 BUN 24 H Creatinine 1.3 Est GFR (CKD-EPI 2020) 61.73 Glucose 210 H Hemoglobin A1c 8.7 H Calcium 8.5 Magnesium 2.1 Troponin I Urine Color Urine Clarity Urine pH Ur Specific [place] Urine Protein Urine Ketones Urine Blood Urine Nitrite Urine Bilirubin Urine Urobilinogen Ur Leukocyte Esterase Urine Glucose Urine Opiates Screen Urine Methadone Screen Ur Barbiturates Screen Ur Tricyclics Screen Ur Amphetamines Screen U Benzodiazepines Scrn Urine Cocaine Screen Ur THC Screen 08/01/23 08/01/23 08/01/23 16:10 16:10 12:20 WBC RBC Hgb Hct MCV MCH MCHC RDW Plt Count MPV Immature Gran % Neutrophils % Lymphocytes % Monocytes % Eosinophils % Basophils % Nucleated RBC % Absolute Neutrophils Absolute Lymphocytes Absolute Monocytes Absolute Eosinophils Absolute Basophils Sodium Potassium Chloride Carbon Dioxide Anion Gap BUN Creatinine Est GFR (CKD-EPI 2020) Glucose Hemoglobin A1c Calcium Magnesium Troponin I < 50 Urine Color Yellow Urine Clarity Clear Urine pH 5.5 Ur Specific [place]ill[place] 1.025 Urine Protein Negative Urine Ketones 40 H Urine Blood Negative Urine Nitrite Negative Urine Bilirubin Negative Urine Urobilinogen 0.2 Ur Leukocyte Esterase Negative Urine Glucose 500 H Urine Opiates Screen Negative Urine Methadone Screen Negative Ur Barbiturates Screen Negative Ur Tricyclics Screen Negative Ur Amphetamines Screen Negative U Benzodiazepines Scrn Positive A Urine Cocaine Screen Negative Ur THC Screen Positive A [facility] Medical History (Updated 08/03/23 @ 00:13 by DAVI BUTLER) Conductive hearing loss, external ear (05/25/17) Wears hearing aids DM (diabetes mellitus) Essential hypertension (09/06/13) HTN (hypertension) Hyperlipidemia (10/19/04) 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) Smoker quit Smoker Supraventricular tachycardia 04/06/12 Supraventricular tachycardia (04/06/12) Syncope 02/18/13 Syncope (02/18/13) Tinnitus, bilateral (05/25/17) Tubular adenoma (05/11/18) tubulovillous Type II diabetes mellitus with complication, uncontrolled Surgical History (Updated 08/01/23 @ 16:54 by Anthony Henry MD) Arthroplasty of knee left Colonoscopy - MAC (05/11/18) H/O arthroscopy of left knee History of arthroscopy of knee Reconstruction reconstruction of left hand after near amputation S/P reconstruction procedure left hand after near amputation Status post reconstruction procedure Family History (Updated 08/13/19 @ 11:14 by John Chamorro) Mother No problems noted. Father , age 58 Diabetes Sister , age 49 Cancer Brother No problems noted. Brother No problems noted. Maternal Grandfather No problems noted. Paternal Grandfather Stroke Maternal Grandmother No problems noted. Paternal Grandmother No problems noted. Son No problems noted. Daughter No problems noted. Daughter No problems noted. Social History (Updated 08/13/19 @ 11:12 by John Chamorro) Smoking/Tobacco Use Status: Current-Occasional Tobacco: How many years used: 40 Quit status: considering quitting Second Hand Exposure: Yes Smoking risk assessment performed?: Yes Alcohol Intake: current Alcohol Intake frequency: 0-2 drinks per day Alcohol type: hard liquor Drug use: Never Substance use type: does not use Caregiver/Support person: No Household members: spouse Housing: house Communication Needs: None Pets and animals: No Sexually active: Yes Do you think of yourself as: straight/heterosexual Current gender identity: male What is your relationship status?: How often do you talk on the phone with friends or family?: once per week How often do you get together with friends or relatives?: once per week How often do you attend cheondoism or sabianism services?: decline to answer Do you belong to any clubs or organized social groups?: no Panel score (0-1 are the most socially isolated patients): 1 What type of physical activity do you participate in: regular exercise Duration: > 90 minutes/day Frequency: daily Dayna/Yazidism: [employer] Special dayna needs: No Seatbelt use: always Helmet use: Yes Helmet use: always Drive intox or ride w/intox residential driver: No Time Spent with Patient Time Spent with Patient: 45-69 minutes Time was spent: preparing to see the patient(eg.review tests), ordering medications,tests, procedures, referring, communicating with other health wild animal caretaker, indepentently interpreting results, counseling the patient and care coordination
--- NOTE | 2023-08-02 13:15 | PT.INIE ---
PT Notes Visit Reasons: Vertigo Physical Therapy Inpatient Initial Evaluation Referring Doctor: Geraldo Ahuja MD PT Orders: PT CONSULT: Vertigo Precautions: Standard. Activity as tolerated. Patient Profile/Admitting Diagnosis: Douglas is a 63-year-old male was admitted to the ED on 08/01/2023 with symptoms of vomiting, dizziness, and tinnitus. Patient also was diagnosed with uncontrolled type 2 diabetes mellitus, hearing loss, essential hypertension, hypoglycemia, and hypomagnesemia. MRI ruled out posterior circulation stroke. 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; major reconstruction Kidney stone on right side 10/19/92 Low back pain (05/05/15) multi level ddd and djd by mri 06/03 Nonexudative age-related macular degeneration (02/18/13) Peptic reflux disease Renal insufficiency (11/17/16) Sensorineural hearing loss of combined sites, bilateral (05/25/17) Smoker quit Supraventricular tachycardia 04/06/12 Supraventricular tachycardia (04/06/12) Syncope 02/18/13 Syncope (02/18/13) Tubular adenoma (05/11/18) Yes tubulovillous Surgical History?(Updated 08/01/23 @ 16:54 by Anthony Henry MD) Arthroplasty of knee left Colonoscopy - MAC (05/11/18) H/O arthroscopy of left knee History of arthroscopy of knee Reconstruction reconstruction of left hand after near amputation S/P reconstruction procedure left hand after near amputation Status post reconstruction procedure Social History/Home Situation: Lives with in a private home with 3 stps to enter. Independent of all aspects of ADLs prior to admission. 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 [place] in [place]. Equipment Owned/DME: None Subjective: Symptoms of room spinning, dizziness, nausea all resolved as of PT visit. Per Nurse Kristen, patient has not had any medications since early this morning. Onset: ?morning of 08/01/2023 until about later in the afternoon that day Quality: room-spinning dizziness, unsteadiness, nausea/vomitting, ringing in ears Duration: corporate law specialist to later in the day yesterday, resolved as of 10 PM last night per patient Previous Episodes: none Exacerbating Factors: movement Nausea/Vomitting: yes Hearing Loss: none Tinnitus: Yes Fullness in Ear: Mild Imbalance: Yes, unable to move out of bed since onset up to 10 PM last noc Red Flags: ? Visual changes: none ? Dysphagia or Dysarthria: none ? Facial Weakness: none ? Incoordination: none Objective: General Observation: Supine in bed. IV through L UE Mental Status: Alert and oriented as to person, place, time, and purpose. Able to pay attention, focus, and respond appropriately. Pain: Denies Vital Signs: WNL as closely monitored by nursing staff ROM: Cervical ROM: Both AROM and PROM full and pain-free Right Upper Extremity: Shoulder Flexion WFL. Shoulder abduction WFL. Elbow flexion WFL. Wrist flexion WFL. Functional opening and closing of hand WFL. Left Upper Extremity: Shoulder Flexion WFL. Shoulder abduction WFL. Elbow flexion WFL. Wrist flexion WFL. Functional opening and closing of hand WFL. Right Lower Extremity: Hip flexion WFL. Hip abduction WFL. Knee flexion WFL. Ankle dorsiflexion WFL. Ankle plantarflexion WFL. Left Lower Extremity: Hip flexion WFL. Hip abduction WFL. Knee flexion WFL. Ankle dorsiflexion WFL. Ankle plantarflexion WFL. Strength: Cervical strength: Normal Right Upper Extremity: Shoulder flexors 5/5. Shoulder abductors 5/5. Elbow flexors 5/5. Elbow extensors 5/5. Saddle Mechanic strong. Left Upper Extremity: Shoulder flexors 5/5. Shoulder abductors 5/5. Elbow flexors 5/5. Elbow extensors 5/5. Saddle Mechanic strong. Right Lower Extremity: Hip flexors 5/5. Hip abductors 5/5. Knee flexors 5/5. Knee extensors 5/5. Ankle dorsiflexors 5/5. Ankle plantarflexors 5/5. Left Lower Extremity: Hip flexors 5/5. Hip abductors 5/5. Knee flexors 5/5. Knee extensors 5/5. Ankle dorsiflexors 5/5. Ankle plantarflexors 5/5. Bed Mobility/Transfers: Rolling independent Supine to sit independent with no vertiginous symptoms Sit to supine independent with no vertiginous symptoms Sit to stand independent with no vertiginous symptoms Stand to sit independent with no vertiginous symptoms Bed to reclining chair independent with no vertiginous symptoms Reclining chair to bed independent with no vertiginous symptoms Gait: Independent with no AD with no vertiginous symptoms reported. Gait pattern unremarkable. Balance: Static Sitting: Normal Dynamic Sitting: Normal Static Standing: Normal Dynamic Standing: Normal Special Tests: Mobility Limitations Standardized Measure [facility] 6 clicks Basic Mobility Inpatient Short Form: Raw Score: 24 CMS Score: 0% deficit Special Tests: ? Rhomberg:(-) ? Coordination: intact in B UEs and LEs ? Fine Motor: Intact ? Visual Tracking: Intact ? Head Thrust: Intact ? Cameron-Halpike: Negative on B sides ? Supine Roll Test: Negative R/L Informed Consent/Education: Patient was instructed in purpose of PT consult. Since patient has been symptomatic at the ED with L Cameron-Hallpike maneuver, patient and were educated and trained with L Olga maneuver and were provided with written/illustrated instruction for it. Emphasized that they do not need to do the Olga as he has been asymptomatic but should symptoms recur they may perform said maneuver. Further instructed patient and to seek PCP referral to OP PT for vestibular rehab should symptom recur and worsen. ASSESSMENT: Negative for canalithiasis/cupulolithaisis for this morning's testing. No symptom provocation from today's test. Back to independent baseline mobility level. No further skilled services needed. Patient is assessed as a 58161 low complexity based on the following: History: 63-year-old male with past medical history as indicated above Examination: As above Presentation: As above Decision Makin low complexity Goals: N/A. PT evaluation and one treatment session only for patient education/training. Plan of Care/Treatment Plan: N/A. PT evaluation and one treatment session only for patient education/training. DISCHARGE RECOMMENDATIONS: [X] Home with no services. Home when medically cleared by hospitalist. [] Home with services [specify] [] Home with outpatient PT [] [] SNF for continued rehabilitation [] [] [facility] [employer] [facility] [] [] SNF versus LTC based on ability to participate and progress [] TREATMENT CODE/TIME: 35568 x 20 minutes for 1 unit, 86939 x 17 minutes beginning at 10:26 AM. Thank you for the opportunity to participate in the care of this patient. Diane Haines PT, DPT, CLT [facility] [place], [place]
--- NOTE | 2023-08-02 13:45 | PDOC.CMDIS ---
Date of service: 08/02/23 Time of Service: 13:45 LACE Index Scoring Tool Questions: Length of Stay (in days): 1 Was the patient admitted via the E.D.?: Yes Comorbidities: Diabetes w/o Complication E.D. Visits: 0 Answers: Total Score: 5 Risk of Readmission: Low Risk Care Management Discharge Plan Reason for Hospitalization: Vertigo Discharge Plan: Mario returned home today with no new services. His drove him home via private vehicle. He will follow up with his PCP and discharge plan of care. He is happy to be going home. Patient/Family Education Needs: Review discharge instructions and limitations, discussion of self care needs including ask me three.
== END 2023-08-02 12:29 | disposition home or self-care (01) ==
LOC: ER 14:19 → MS 14:23
PROVIDERS: Family Medicine; Admitting Provider Family Medicine; Emergency Provider Physician Assistant; Visit Provider Family Medicine
DX: R42 Dizziness and giddiness (principal); R11.2 Nausea with vomiting, unspecified; H93.13 Tinnitus, bilateral; E11.65 Type 2 diabetes mellitus with hyperglycemia; E83.42 Hypomagnesemia; E11.649 Type 2 diabetes mellitus with hypoglycemia without coma; Z79.899 Other long term (current) drug therapy; Z79.4 Long term (current) use of insulin; R26.0 Ataxic gait; I47.1 Supraventricular tachycardia; E78.5 Hyperlipidemia, unspecified; N18.9 Chronic kidney disease, unspecified; M54.50 Low back pain, unspecified; H90.6 Mixed conductive and sensorineural hearing loss, bilateral; Z96.652 Presence of left artificial knee joint; F17.210 Nicotine dependence, cigarettes, uncomplicated; E11.22 Type 2 diabetes mellitus with diabetic chronic kidney disease; I12.9 Hypertensive chronic kidney disease with stage 1 through stage 4 chronic kidney disease, or unspecified chronic kidney disease
CPT/HCPCS: 36410; 36415; 36416; 80048; 80053; 80307; 82962; 93005; 96361; 96365; 96366; 96374; 96375; 96376; 97161; 97530; 99285; 70551; 81003; 83036; 83735; 84484; 85025; 93010; 99222; 99239; G0378; J0780; J1200; J2060; J2765; J3360; J3475

== ENCOUNTER 2024-05-21 09:36 | Outpatient (REF) | payer BC, SELFPAY ==
[2024-05-21 13:41] LABS: COMMENT (LAB VIEW ONLY) 75.17 mg/dL
== END 2024-05-21 09:37 ==
LOC: LBN 09:36
PROVIDERS: PCP Family Medicine; Visit Provider Family Medicine
DX: E11.9 Type 2 diabetes mellitus without complications (principal)
CPT/HCPCS: 82043; 82570

== ENCOUNTER 2025-07-09 17:06 | Outpatient (CLI) | payer MEDICARE, BC, SELFPAY ==
--- NOTE | 2025-07-09 17:15 | DI.RAD_ITS ---
Exam(s) XR SHOULDER RT COMPLETE 2+V EXAM: XR SHOULDER RT COMPLETE 2+V CLINICAL HISTORY: evaluate pathology. TECHNIQUE: 2D digital imaging was performed. COMPARISON: No exams were available for comparison FINDINGS: Five views No evidence of acute fracture or dislocation and there are no abnormal calcifications in the subacromial space. The subacromial space is not diminished. There are moderate degenerative changes in the AC joint. Ipsilateral clavicle is otherwise intact/unremarkable no obvious degenerative changes in the glenohumeral joint. Bone density is normal. There is a subcortical density in the proximal diaphysis of the humerus. This may be a biceps tenodesis site. IMPRESSION: There are moderate degenerative changes in the acromioclavicular joint. Glenohumeral joint appears unremarkable. Probable biceps tenodesis site in the proximal humeral diaphysis. Preliminary virtual Radiology report was reviewed DATA REPOSITORY: RADIATION DOSE DELIVERED:
--- NOTE | 2025-07-09 18:02 | DI.VRAD_ITS ---
PROCEDURE INFORMATION: Exam: XR Right Shoulder Exam date and time: 07/09/2025 17:37 Age: 65 years old Clinical indication: Evaluate pathology evaluate distal clavicle TECHNIQUE: Imaging protocol: Radiologic exam of the right shoulder. Views: 2 or more views. COMPARISON: No relevant prior studies available. FINDINGS: Bones/joints: No acute fracture or subluxation. Mild AC greater than glenohumeral degenerative changes. Soft tissues: Normal. IMPRESSION: No acute bony pathology. Dictated and Authenticated by: Minoo Gongora MD. Orderin María Huerta MD
== END 2025-07-09 17:26 ==
PROVIDERS: PCP Family Medicine; Visit Provider Nurse Practitioner Family
DX: M19.011 Primary osteoarthritis, right shoulder (principal)
CPT/HCPCS: 73030